=== PATIENT | female | born 1995 | race Caucasian/White ===

== ENCOUNTER 2017-09-17 21:37 | Emergency (ER) | payer OTHER ==
[~2017-09-17] VITALS: Ht 154.9 cm; Wt 52.7 kg
[2017-09-17 21:54] VITALS: Ht 154.9 cm; Wt 52.7 kg
[2017-09-17] MEDS ORDERED: ACETAMINOPHEN 500 MG TAB PO STA (22:29)
[2017-09-17] MEDS ORDERED: IBUPROFEN 600 MG TAB PO STA (22:29)
[2017-09-17 23:25] LABS: INFLUENZA B ANTIGEN Neg for Influ B (NEG)
[2017-09-17 23:30] VITALS: TEMP 36.7
[2017-09-17] MEDS ORDERED: ALBUTEROL HFA 8 GM INHALER INH STA (23:55)
[2017-09-18 00:11] VITALS: BP 133/70; PULSE 100; O2SAT 97
--- NOTE | 2017-09-18 06:15 | EMERGENCY ROOM VISIT NOTE ---
History First contact with patient: 22:23 Chief Complaint: ILLNESS Stated Complaint: SORE THROAT, ACHEY EARS, COUGH, CHILLS, SOB History of Present Illness The patient is a 22 year old female who presents to the Emergency Room with complaints of fever, chills, body aches and pains and sore throat for the past 2 days. Patient tolerated p.o. fluids and food. Patient denies chest pain, abdominal pain, vomiting, diarrhea, neck stiffness. No flu shot. No recent travel. Review of Systems An 10 system review of systems was completed with positives and pertinent negatives listed in the HPI. Past Medical/Surgical History None Social History Smoking Status: Never Smoker Alcohol Use: occasionally Drug Use: none Marital Status: single Occupation Status: [employer] Current/Historical Medications No Active Prescriptions or Reported Meds Physical Exam Vital Signs Date Time Temp Pulse Resp B/P (MAP) Pulse Ox O2 Delivery O2 Flow Rate FiO2 09/18/17 00:11 100 20 133/70 97 Room Air 09/17/17 23:30 36.7 110 20 135/75 96 Room Air 09/17/17 21:54 38.3 140 20 137/73 96 Room Air Physical Exam VITALS: Vitals are noted on the nurse's note and reviewed by myself. Vital signs low-grade fever. GENERAL: Pleasant female anxious appearing, in no acute distress, nondiaphoretic , well-developed well-nourished. SKIN: The skin was without rashes, erythema, edema, or bruising. There is no tenting of the skin. Capillary reflex less than 2 seconds. HEAD: Normocephalic atraumatic. EARS: External auditory canals clear, tympanic membranes pearly toth without erythema or effusion bilaterally. EYES: Pupils equal round and reactive to light and accommodation. Conjunctivae without injection, sclerae without icterus. Extraocular movements intact. NOSE: Patent, turbinates without inflammation or discharge. No sinus tenderness. MOUTH: Mucous membranes mildly dry. Pharynx without erythema or exudate. Uvula midline. Airway patent. Tongue does not deviate. NECK: Supple without nuchal rigidity. No lymphadenopathy. No thyromegaly. Cervical spine is nontender. No JVD. HEART: Tachycardic rate and rhythm without murmurs gallops or rubs. LUNGS: Clear to auscultation bilaterally without wheezes, rales or rhonchi. No retractions or accessory muscle use. ABDOMEN: Positive bowel sounds x 4. Normal tympanic percussion. Soft, nontender, without masses or organomegaly. Sanchez sign negative. No guarding or rebound tenderness. No CVA tenderness MUSCULOSKELETAL: No muscle atrophy, erythema, or edema noted. NEURO: Patient was alert and oriented to person place and time. Normal sensation to light and sharp touch. No focal neurological deficits. Medical Decision & Procedures Laboratory Results Test 09/17/17 23:00 Influenza Type A Antigen Neg for Influ A (NEG) Influenza Type B Antigen Neg for Influ B (NEG) Medications Administered Medications (Trade) Dose Ordered Sig/Beatriz Route Start Time Stop Time Status Last Admin Dose Admin Acetaminophen (Tylenol Tab) 1,000 mg NOW STAT PO 09/17/17 22:29 09/17/17 22:33 DC 09/17/17 22:57 1,000 MG Ibuprofen (Motrin Tab) 600 mg NOW STAT PO 09/17/17 22:29 09/17/17 22:33 DC 09/17/17 22:57 600 MG ED Course Prior records/ancillary studies reviewed. Triage Nursing notes reviewed. The patient's history was concerning for fever. Differential diagnosis: Etiologies such as viral syndrome, otitis, pharyngitis, pneumonia, influenza, meningitis, urinary tract infection, sepsis, bacteremia, as well as others were entertained. Physical examination: Patient is alert and tolerating fluids ER treatment provided: P.o. fluids, Tylenol, Motrin On reassessment the patient felt better. Diagnostics interpreted by me: The labs revealed negative flu and strep test Imaging studies: Chest x-ray with no acute consolidation, pneumothorax free of my interpretation This appears to be consistent with influenza-like illness. Patient was neurovascularly and neurologically intact. No signs of meningitis. No pneumonia. She is advised to take medications as directed, rest, stay well- hydrated and follow-up health services in a few days here and here sooner for high fevers, lethargy, neck stiffness, worsening signs or symptoms or as needed. By the evaluation outlined above emergent etiologies such as otitis, pharyngitis, pneumonia, meningitis, urinary tract infection, sepsis, bacteremia , as well as others were deemed relatively unlikely. The pt informed about the findings as listed above. All questions were answered and pleased with the treatment. Return instructions were outlined and the patient was discharged in stable condition. Referral: The patient was referred back to their primary care physician for follow-up in 2 to 3 days for a recheck of the current condition. Case reviewed with my attending The chart was completed utilizing [employer] Speech voice recognition software. Grammatical errors, random word insertions, pronoun errors, and incomplete sentences are an occassional consequence of this system due to software limitations, ambient noise, and hardware issues. Any formal questions or concerns about the content, text, or information contained within the body of this dictation should be directly addressed to the physician assistant surveyor for clarification. Medical Decision As above Medication Reconcilliation Current Medication List: was personally reviewed by me Blood Pressure Screening Patient's blood pressure: Normal blood pressure Impression Primary Impression: Influenza-like illness Departure Information Dispostion Home / Self-Care Condition GOOD Prescriptions No Active Prescriptions or Reported Meds Forms WORK / SCHOOL INSTRUCTIONS, HOME CARE DOCUMENTATION FORM, Days off school: 2 Work Instructions, IMPORTANT VISIT INFORMATION Patient Instructions [facility], ED Flu Additional Instructions Stay at home until you are 24 hours fever free as you are highly contagious. Acetaminophen(Tylenol) may be used for fever or pain. Use 1000mg every six hours as needed. Avoid using more than 3000mg in a 24 hour period. (AND/OR) Ibuprofen(Motrin, Advil) may be used for fever or pain. Use 600mg every six hours as needed. Take with food. Avoid using more than 2400mg in a 24 hour period. Do not use 2400mg per day for more than three consecutive days without physician direction. Prolonged inappropriate use can lead to stomach upset or ulcers. Afrin nasal spray: 2-3 sprays to each nostril twice daily as needed for congestion. Do not use for more than 3-4 days because it can lead to worsening rebound congestion. Pseudoephedrine(Sudaphed): 30-60mg every 6 hours as needed for nasal congestion. Do not take this with other stimulant products or supplements. Albuterol Inhaler: Take 2 puffs four times daily for seven days, then as needed. Rest and drink plenty of fluids. Controlling your fever with Tylenol and Ibuprofen as above will make you feel better. Wash your hands after nose blowing, sneezing, or coughing. Most germs are spread through contact, therefore improper hygiene may result in your close contacts and loved ones becoming ill just like you. Continue current medications. Return to the ER for severe headache, neck stiffness, chest pain, difficulty breathing, fevers, vomiting, worsening of your condition, or as needed. Follow up with your primary physician this week for a recheck of your current condition.
--- NOTE | 2017-09-18 06:56 | DIAGNOSTIC IMAGING REPORT ---
CHEST 2 VIEWS ROUTINE CLINICAL HISTORY: 22 years-old Female presenting with cough./fever. TECHNIQUE: PA and lateral views of the chest were obtained. COMPARISON: None. FINDINGS: Cardiomediastinal silhouette normal. Questionable minimal hazy opacity in the right middle lobe. No other focal opacity. No pleural effusion or pneumothorax. Osseous structures normal. Upper abdomen normal. IMPRESSION: 1. Questionable hazy infiltrate in the right middle lobe. This raises concern for pneumonia. The report will be called/faxed according to standard departmental protocol. Electronically signed by: Armaan Quiñones M.D. 09/18/2017 6:55 AM Dictated Date/Time: 09/18/2017 6:48 AM
== END 2017-09-18 00:12 | disposition home or self-care (01) ==
LOC: C.EDB 21:40 → C.EDC 09-18 00:12
DX: J10.1 Influenza due to other identified influenza virus with other respiratory manifestations (principal)